=== PATIENT | female | born 1960 ===

== ENCOUNTER 2017-11-11 01:01 | Day surgery (SDC) | payer OTHER ==
[~2017-11-11 01:01] MED LIST: CLAR500 PO; FURO40 PO; Hair, Skin & N1 EACH PO; METR500 PO; OMEPRAZOLE MAGN20 MG PO; ONDA4 PO; SIME80CH PO; SPIR25 PO
[2018-04-20] MEDS ORDERED: Hydroxyzine HCl50 MG (11:58)
[2018-04-20] MEDS ORDERED: LOSA25 (11:58)
[2018-04-20] MEDS ORDERED: SPIR50 (11:58)
== END 2017-11-11 23:05 | disposition home or self-care (01) ==
LOC: US 01:01
DX: R18.8 Other ascites (principal); K74.60 Unspecified cirrhosis of liver
CPT/HCPCS: 76705

== ENCOUNTER 2018-04-27 06:46 | Day surgery (SDC) | payer OTHER ==
[~2018-04-27] VITALS: Ht 152.4 cm; Wt 72.0 kg
[~2018-04-27 06:46] MED LIST changes: +Hydroxyzine HCl50 MG; +LOSA25; +SPIR50
== END 2018-04-27 08:45 | disposition home or self-care (01) ==
LOC: ORSCSDS 06:46
PROVIDERS: Internal Medicine Gastroenterology
PROC: 0DJ08ZZ Inspection of Upper Intestinal Tract, Via Natural or Artificial Opening Endoscopic (ICD-10-PCS; principal; 2018-04-27 08:00)
DX: K74.60 Unspecified cirrhosis of liver (principal); Z13.810 Encounter for screening for upper gastrointestinal disorder; D50.9 Iron deficiency anemia, unspecified; Z87.891 Personal history of nicotine dependence; Z79.899 Other long term (current) drug therapy
CPT/HCPCS: J0330; J1980; J2405; J7120

== ENCOUNTER 2019-04-07 10:57 | Day surgery (SDC) | payer OTHER ==
[~2019-04-07] VITALS: Ht 154.9 cm; Wt 84.0 kg
[~2019-04-07 10:57] MED LIST changes: +FURO20 PO; +Hydroxyzine HCl50 MG PO; +LACT10SY PO; +SPIR50 PO
== END 2019-04-07 13:09 | disposition home or self-care (01) ==
LOC: ORSCSDS 10:57
PROVIDERS: Internal Medicine Gastroenterology
PROC: 0DJ08ZZ Inspection of Upper Intestinal Tract, Via Natural or Artificial Opening Endoscopic (ICD-10-PCS; principal; 2019-04-07 12:15)
DX: K74.60 Unspecified cirrhosis of liver (principal); K44.9 Diaphragmatic hernia without obstruction or gangrene; Z13.810 Encounter for screening for upper gastrointestinal disorder; B19.20 Unspecified viral hepatitis C without hepatic coma; D64.9 Anemia, unspecified; Z79.899 Other long term (current) drug therapy
CPT/HCPCS: J2704; J7120